=== PATIENT | male | born 1955 | race Caucasian/White ===

== ENCOUNTER → 2016-10-27 | Day surgery (SDC) | payer OTHER ==
[~2016-10-27] MED LIST: AMLO5TAB4 PO; ATOR20TA PO; BUSP5TAB PO; CELE100C PO; CETI10TA22 PO; HYDR-2758 PO; HYDROmorphone 2 MG/ML VIAL IV PRN; INSU100I17 SQ; INSU100V13 SQ; ISOS60TA2 PO; IV RINGERS,LACTATED 1000ML 1,000 ML IV SCH; LIDOCAINE 1% PF 2 ML VIAL. ID PRN; LIDOCAINE 2% PF Vial for OR 5 ML VIAL. ONE; LISI40TA PO; METF-620 PO; METO-247 PO; MORPHINE SULFATE 2 MG/ML DISP.SYRIN. IV PRN; ONDANSETRON PF 4 MG/2 ML VIAL. IV PRN; PARO30TA45 PO; PREG150C PO; PROCHLORPERAZINE 10 MG/2 ML VIAL. IV PRN; PROPOFOL 40 ML IV ONE; fentaNYL PF VIAL 100 MCG/2 ML VIAL IV PRN
[2016-10-27 08:28] VITALS: BP 124/60
== END | disposition home or self-care (01) ==
LOC: ENDOS 06:11
PROVIDERS: ATTEND Internal Medicine Gastroenterology
DX: Z09 Encounter for follow-up examination after completed treatment for conditions other than malignant neoplasm (principal); Z86.010 Personal history of colon polyps; K64.0 First degree hemorrhoids; E11.42 Type 2 diabetes mellitus with diabetic polyneuropathy; I25.10 Atherosclerotic heart disease of native coronary artery without angina pectoris; I10 Essential (primary) hypertension; E66.9 Obesity, unspecified; Z68.44 Body mass index [BMI] 60.0-69.9, adult; F41.9 Anxiety disorder, unspecified; F32.9 Major depressive disorder, single episode, unspecified; Z86.39 Personal history of other endocrine, nutritional and metabolic disease; Z72.89 Other problems related to lifestyle; Z88.1 Allergy status to other antibiotic agents
CPT/HCPCS: 45378; 82962; J2704; J2001

== ENCOUNTER 2017-08-25 07:03 | Outpatient (CLI) | payer MEDICARE, OTHER ==
[2017-08-25 07:37] LABS: BASO # 0.2 x10^3/uL (0.0-0.2); BASO % 0 % (0-3); EOS # 0.5 x10^3/uL (0.0-0.7); EOS % 1 % (0-3); HEMATOCRIT 41.4 % (39.0-53.0); HEMOGLOBIN 13.6 g/dL (13.0-17.5); LYMPH # 42.9 x10^3/uL (1.0-4.8); LYMPH % 85 % (24-48); MEAN CORPUSCULAR HEMOGLOBIN 29 pg (25-35); MEAN CORPUSCULAR HGB CONC 33 g/dL (31-37); MEAN CORPUSCULAR VOLUME 89 fL (79-100); MONO # 0.8 x10^3/uL (0.0-1.1); MONO % 2 % (0-9); NEUT # 6.3 x10^3uL (1.8-7.7); NEUT % 13 % (31-73); PLATELET COUNT 141 x10^3/uL (140-400); RED BLOOD COUNT 4.64 x10^6/uL (4.30-5.70); RED CELL DISTRIBUTION WIDTH 14.1 % (11.5-14.5)
[2017-08-25 07:40] LABS: ADD MAN DIFF? YES; WHITE BLOOD COUNT 50.7 x10^3/uL (4.0-11.0)
[2017-08-25 07:46] LABS: PARTIAL THROMBOPLASTIN TIME 26 SEC (24-38); PROTHROMBIN TIME PATIENT 12.3 SEC (11.7-14.0)
[2017-08-25] MEDS ORDERED: MIDAZOLAM HCL/PF 2 MG/2 ML VIAL. (08:02)
[2017-08-25] MEDS ORDERED: LIDOCAINE WITH 8.4% SOD BICARB 3 ML DISP.SYRIN. (08:03)
[2017-08-25] MEDS ORDERED: fentaNYL PF VIAL 100 MCG/2 ML VIAL (08:03)
[2017-08-25] MEDS: fentaNYL PF VIAL 100 MCG/2 ML VIAL IV (08:51)
[2017-08-25] MEDS: LIDOCAINE WITH 8.4% SOD BICARB 3 ML DISP.SYRIN. IJ (08:51)
[2017-08-25] MEDS: MIDAZOLAM HCL/PF 2 MG/2 ML VIAL. IV (08:51)
[2017-08-25 09:53] LABS: % ATYL 3 % (0-0); % EOS 1 % (0-5); % LYMPHS 81 % (24-48); % MONOS 1 % (0-10); % SEGS 14 % (35-66); PLT ESTIMATE ADEQUATE (ADEQUATE)
== END 2017-08-25 10:20 | disposition home or self-care (01) ==
LOC: INTRAD 07:03
DX: C91.10 Chronic lymphocytic leukemia of B-cell type not having achieved remission (principal); D69.6 Thrombocytopenia, unspecified; Z88.1 Allergy status to other antibiotic agents; E66.9 Obesity, unspecified; Z68.41 Body mass index [BMI] 40.0-44.9, adult; E11.42 Type 2 diabetes mellitus with diabetic polyneuropathy; I25.10 Atherosclerotic heart disease of native coronary artery without angina pectoris; E78.00 Pure hypercholesterolemia, unspecified; Z98.890 Other specified postprocedural states; I10 Essential (primary) hypertension; K21.9 Gastro-esophageal reflux disease without esophagitis; Z87.440 Personal history of urinary (tract) infections; F41.9 Anxiety disorder, unspecified; F32.9 Major depressive disorder, single episode, unspecified; Q90.9 Down syndrome, unspecified; Z72.89 Other problems related to lifestyle; Z86.010 Personal history of colon polyps; Z86.39 Personal history of other endocrine, nutritional and metabolic disease; Z79.84 Long term (current) use of oral hypoglycemic drugs
CPT/HCPCS: 36415; 38222; 77012; 85007; 85025; 85610; 85730; 88184; 88185; 88237; 99152; J2250; J3010